=== PATIENT | female | born 1965 | race Caucasian/White ===

== ENCOUNTER → 2023-04-18 | Outpatient (CLI) | payer MEDICARE, MEDICAID, SELFPAY ==
--- NOTE | 2023-04-18 13:00 | CT_ITS ---
STUDY: CT BRAIN WITHOUT CONTRAST REASON FOR EXAM: Female, 57 years old. Hx intracranial hemorrhage at ; epilepsy RADIATION DOSAGE (If Supplied By Facility): CTDIvol = ( 44.99 ) mGy, DLP = ( 812.98 ) mGycm TECHNIQUE: Transaxial CT imaging of the brain was performed without administration of intravenous contrast material. Individualized dose optimization techniques were used for this CT. COMPARISON: No relevant priors. FINDINGS: Normal soft tissue structures. There is hyperostosis frontalis internus. Prior right parietal-occipital craniotomy. Diffuse encephalomalacia involving the posterior bilateral parietal temporal and occipital lobes. Normal basal ganglia and thalami. Normal brainstem. Normal cerebellum. There is no intracranial hemorrhage. There are no findings of an acute ischemic infarction. Normal visualized paranasal sinuses. 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 Electronically Signed: Reagan Michael MD at 13:19 EDT ,
== END | disposition home or self-care (01) ==
LOC: CT 12:59
PROVIDERS: Referring Provider Psychiatry & Neurology Neurology; Visit Provider Psychiatry & Neurology Neurology
DX: G40.909 Epilepsy, unspecified, not intractable, without status epilepticus (principal); F79 Unspecified intellectual disabilities; R62.50 Unspecified lack of expected normal physiological development in childhood
CPT/HCPCS: 70450

== ENCOUNTER → 2023-04-22 | Outpatient (CLI) | payer MEDICARE, MEDICAID, SELFPAY | END | disposition home or self-care (01) | PROVIDERS: Referring Provider Psychiatry & Neurology Neurology; Visit Provider Psychiatry & Neurology Neurology | DX: G40.909 Epilepsy, unspecified, not intractable, without status epilepticus (principal); R62.50 Unspecified lack of expected normal physiological development in childhood; F79 Unspecified intellectual disabilities | CPT/HCPCS: 95819 ==